=== PATIENT | male | born 1995 | race Two or more races ===

== ENCOUNTER 2017-04-15 00:07 | Emergency (ER) | payer OTHER ==
[2017-04-15] MEDS ORDERED: NS 1,000 ML IV ONE ×2 (00:11)
[2017-04-15] MEDS ORDERED: LORazepam 2 MG/ML INJ IVP ONE ×2 (00:12)
--- NOTE | 2017-04-15 00:12 | EDPHY ---
H & P HPI/ROS: HPI CHIEF COMPLAINT: Nausea, vomiting, epigastric discomfort. HISTORY OF PRESENT ILLNESS: This patient is a 22-year-old male, he is otherwise healthy no significant medical history he had 3 beers this evening and 2 shots of liquor and suddenly onset approximately an hour ago developed epigastric pain that radiates to his back. Associated nausea. Hyperventilating. Numbness and tingling around his mouth and hands. Denies chest pain or shortness of breath. Pain is located epigastric region. Feels like something "squeezing" his abdomen. Past Medical History: No Significant medical history Past Surgical History: No significant surgical history Social History: Smokes tobacco. Alcohol this evening. Family History: Noncontributory. ROS REVIEW OF SYSTEMS: A comprehensive 10 point review of systems is otherwise negative aside from elements mentioned in the history of present illness. Exam Constitutional appears anxious, hyperventilating, triage nursing summary reviewed, vital signs reviewed, awake/alert. Eyes normal conjunctivae and sclera, EOMI, PERRLA. HENT normal inspection, atraumatic, moist mucus membranes, no epistaxis, neck supple/ no meningismus, no raccoon eyes. Respiratory clear to auscultation bilaterally, normal breath sounds, no respiratory distress, no wheezing. Cardiovascular rate normal, regular rhythm, no murmur, no edema, distal pulses normal. Gastrointestinal soft, mild tender palpation epigastric region,, no rebound, no guarding, normal bowel sounds, no distension, no pulsatile mass. Genitourinary no CVA tenderness. Musculoskeletal no midline vertebral tenderness, full range of motion, no calf swelling, no tenderness of extremities, no meningismus, good pulses, neurovascularly intact. Skin pink, warm, & dry, no rash, skin atraumatic. Neurologic awake, alert and oriented x 3, AAOx3, moves all 4 extremities equally, motor intact, sensory intact, CN II-XII intact, normal cerebellar, normal vision, normal speech. Psychiatric anxious, hyperventilating Heme/Lymph/Immune no lymphadenopathy. Differential diagnosis includes but is not limited to and in no particular order : Bowel obstruction, appendicitis, gallbladder disease, diverticulitis, colitis , enteritis, perforated viscus, gastritis, GERD, esophagitis, urinary tract infection, pyelonephritis, kidney stones Medical Decision Making: Plan for this patient IV establishment, IV fluid bolus , IV Ativan for anxiety, check abdominal blood work Re-evaluation: EKG interpretation by me on record in [email or web address] system. Impression time of EKG 0018. This is sinus rhythm rate of 90. No acute ischemic change. No signs of cardiac arrhythmia. ED x-ray chest one view: Negative for acute cardiopulmonary disease. No free air. No mediastinal air. No subcutaneous emphysema. EKG interpretation by me on record in [email or web address] system. Impression repeat EKG 3:23 a.m., sinus rhythm rate of 67. No acute ischemic changes appreciated. Unchanged from previous EKG. No prolonged intervals. No signs of cardiac arrhythmia. 0415: 2nd troponin negative. Patient is sleeping. Resting comfortably. Re- evaluation at this time no chest pain no shortness of breath no complaints. Like to go home. Constellation of symptoms including anxiety and alcohol and Chest pressure. Most likely due to alcohol intoxication and acute anxiety. Return precautions given. Patient understands. Understands return emergency room if develops worsening chest pain shortness of breath anxiety nausea vomiting or syncope. Source: Patient, EMS Constitutional: Initial Vital Signs O2 Sat (%) 98 04/15/17 00:11 O2 Delivery Mode Nasal Cannula O2 (L/minute) 2 Allergies/Adverse Reactions: Penicillins Allergy (Verified 04/15/17 00:15) Sulfa (Sulfonamide Antibiotics) Allergy (Verified 04/15/17 00:15) Home Medications: Medication Instructions Recorded NK [No Known Home Meds] 04/15/17 Medical Decision Making - Data Points Laboratory Results: Laboratory Results 04/15/17 00:18 04/15/17 00:18 04/15/17 04/15/17 04/15/17 03:20 00:18 00:18 WBC RBC Hgb Hct MCV MCH MCHC RDW Plt Count MPV Neut % (Auto) Lymph % (Auto) [place] % (Auto) Eos % (Auto) Baso % (Auto) Nucleat RBC Rel Count Absolute Neuts (auto) Absolute Lymphs (auto) Absolute Monos (auto) Absolute Eos (auto) Absolute Basos (auto) Absolute Nucleated RBC Immature Gran % Immature Gran # PT 12.1 SEC SEC (12.0-15.0) INR 0.91 (0.83-1.16) APTT 26.2 SEC SEC (23.0-38.0) D-Dimer 0.28 ug/mLFEU ug/mLFEU (0.00-0.50) Sodium 144 mEq/L mEq/L (134-144) Potassium 3.7 mEq/L mEq/L (3.5-5.2) Chloride 103 mEq/L mEq/L (97-110) Carbon Dioxide 20 mEq/l L mEq/l (22-31) Anion Gap 21 mEq/L H mEq/L (8-16) BUN 15 mg/dL mg/dL (7-23) Creatinine 1.0 mg/dL mg/dL (0.7-1.3) Estimated GFR > 60 Glucose 81 mg/dL mg/dL (70-100) Calcium 10.0 mg/dL mg/dL (8.5-10.4) Magnesium 2.3 mg/dL mg/dL (1.6-2.3) Total Bilirubin 0.7 mg/dL mg/dL (0.1-1.4) Conjugated Bilirubin 0.4 mg/dL mg/dL (0.0-0.5) Unconjugated Bilirubin 0.3 mg/dL mg/dL (0.0-1.1) AST 42 IU/L IU/L (17-59) ALT 66 IU/L IU/L (21-72) Alkaline Phosphatase 116 IU/L IU/L (38-126) Troponin I < 0.012 ng/mL ng/mL < 0.012 ng/mL ng/mL (0.000-0.034) (0.000-0.034) NT-Pro-B Natriuret Pep < 11 pg/mL pg/mL (0-125) Total Protein 7.9 g/dL g/dL (6.3-8.2) Albumin 5.2 g/dL H g/dL (3.5-5.0) Lipase 135 IU/L IU/L (23-300) Ethyl Alcohol 182 mg/dL H mg/dL (0-10) 04/15/17 00:18 WBC 10.89 10^3/uL H 10^3/uL (3.80-9.50) RBC 5.28 10^6/uL 10^6/uL (4.40-6.38) Hgb 17.4 g/dL g/dL (13.7-17.5) Hct 47.0 % % (40.0-51.0) MCV 89.0 fL fL (81.5-99.8) MCH 33.0 pg pg (27.9-34.1) MCHC 37.0 g/dL H g/dL (32.4-36.7) RDW 12.3 % % (11.5-15.2) Plt Count 231 10^3/uL 10^3/uL (150-400) MPV 9.9 fL fL (8.7-11.7) Neut % (Auto) 51.3 % % (39.3-74.2) Lymph % (Auto) 36.1 % % (15.0-45.0) [place] % (Auto) 10.0 % % (4.5-13.0) Eos % (Auto) 1.5 % % (0.6-7.6) Baso % (Auto) 0.6 % % (0.3-1.7) Nucleat RBC Rel Count 0.0 % % (0.0-0.2) Absolute Neuts (auto) 5.60 10^3/uL 10^3/uL (1.70-6.50) Absolute Lymphs (auto) 3.93 10^3/uL H 10^3/uL (1.00-3.00) Absolute Monos (auto) 1.09 10^3/uL H 10^3/uL (0.30-0.80) Absolute Eos (auto) 0.16 10^3/uL 10^3/uL (0.03-0.40) Absolute Basos (auto) 0.06 10^3/uL 10^3/uL (0.02-0.10) Absolute Nucleated RBC 0.00 10^3/uL 10^3/uL (0-0.01) Immature Gran % 0.5 % % (0.0-1.1) Immature Gran # 0.05 10^3/uL 10^3/uL (0.00-0.10) PT INR APTT D-Dimer Sodium Potassium Chloride Carbon Dioxide Anion Gap BUN Creatinine Estimated GFR Glucose Calcium Magnesium Total Bilirubin Conjugated Bilirubin Unconjugated Bilirubin AST ALT Alkaline Phosphatase Troponin I NT-Pro-B Natriuret Pep Total Protein Albumin Lipase Ethyl Alcohol Medications Given: Discontinued Medications Sodium Chloride (Ns) 1,000 mls @ 0 mls/hr IV EDNOW ONE; Wide Open PRN Reason: Protocol Stop: 04/15/17 00:12 Last Admin: 04/15/17 01:04 Dose: 1,000 mls Lorazepam (Ativan Injection) 1 mg IVP EDNOW ONE Stop: 04/15/17 00:13 Last Admin: 04/15/17 00:32 Dose: 1 mg Departure - Departure Disposition: Home, Routine, Self-Care Clinical Impression: Anxiety Alcohol intoxication Qualifiers: Complication of substance-induced condition: uncomplicated Qualified Code(s): F10.920 - Alcohol use, unspecified with intoxication, uncomplicated Condition: Good Instructions: Alcohol Intoxication (ED), Anxiety (ED) Additional Instructions: 1. Return emergency room if develops any worsening symptoms includes chest pain , shortness of breath, vomiting or passing out. Referrals: Patient,NotPresent [Unknown] - As per Instructions
[2017-04-15 00:15] VITALS: TEMP 97.9
--- NOTE | 2017-04-15 00:20 | CPEKG ---
Heart Rate: 90 RR Interval: 667 P-R Interval: 164 QRSD Interval: 102 QT Interval: 364 QTC Interval: 446 P [place]: 66 QRS [place]: 44 T Wave [place]: 30 EKG Severity - BORDERLINE ECG - EKG Impression: SINUS RHYTHM EKG Impression: PROBABLE LEFT ATRIAL ABNORMALITY Electronically Signed By: Murray Monreal 15-Apr-2017 06:35:17
[2017-04-15 00:21] LABS: PLATELET COUNT 231 10^3/uL (150-400)
[2017-04-15 00:30] LABS: INR 0.91 (0.83-1.16); PROTIME(PATIENT) 12.1 SEC (12.0-15.0)
[2017-04-15 00:39] VITALS: RESP 16
--- NOTE | 2017-04-15 03:25 | CPEKG ---
Heart Rate: 67 RR Interval: 896 P-R Interval: 168 QRSD Interval: 86 QT Interval: 372 QTC Interval: 393 P [place]: 26 QRS [place]: 59 T Wave [place]: 39 EKG Severity - NORMAL ECG - EKG Impression: SINUS RHYTHM Electronically Signed By: Murray Monreal 15-Apr-2017 06:35:17
--- NOTE | 2017-04-15 03:25 | CPEKG ---
Heart Rate: 67 RR Interval: 896 P-R Interval: 168 QRSD Interval: 86 QT Interval: 372 QTC Interval: 393 P [place]: 26 QRS [place]: 59 T Wave [place]: 39 EKG Severity - NORMAL ECG - EKG Impression: SINUS RHYTHM Electronically Signed By: Murray Monreal 15-Apr-2017 06:35:17
[2017-04-15 04:15] VITALS: BP 129/70; PULSE 81; O2SAT 96
== END 2017-04-15 04:15 | disposition home or self-care (01) ==
DX: F10.920 Alcohol use, unspecified with intoxication, uncomplicated (principal); F41.9 Anxiety disorder, unspecified; E86.9 Volume depletion, unspecified; F17.200 Nicotine dependence, unspecified, uncomplicated
CPT/HCPCS: 96374; G0480; J2060